=== PATIENT | male | born 1945 | race African-American/Black ===

== ENCOUNTER 2017-06-20 22:50 | Emergency (ER) | payer MEDICARE ==
[~2017-06-20] VITALS: Ht 185.4 cm; Wt 121.8 kg
[~2017-06-20 22:50] MED LIST: ALLEGRA-D 1212 HOUR PO; ALLEGRA-D 2424 HOUR PO; ALPRAZOLA1 PO; ALPRAZOLAM0.5 MG PO; AMLODIPINE10 MG OR; AMLODIPINE10 MG PO; AMOXICILLIN/CL500 MG PO; ANDROGEL TD; AUGMENTIN500TAB PO; BACTROBAN2 % EX; BRILINTA90 MG PO; CYMBALTA60 MG PO; FLEXERIL OR; FLONASE NASAL50 MCG; FOSINOPRIL20 MG OR; FOSINOPRIL40 MG PO; FUROSEMIDE40 MG PO; GLIMEPIRIDE2 MG OR; GLUCOTROL5 MG PO; HYTRIN2 MG OR; KEFLEX500 MG PO; KLOR-CON 1010 ME1 PO; KLOR-CON 1010 MEQ OR; LANTUS SC; LANTUS100 MG/ML SC; LASIX 40 MG TAB40 MG OR; LASIX 40 MG TAB40 MG PO; LIPITOR10 MG OR; LIPITOR80 MG PO; LISINOPRIL10 MG PO; LISINOPRIL20 MG PO; LORAZEPAM0.5 MG PO; LORTAB 7.5-3251 TAB PO; LORTAB5 PO; Levaquin PO; METFORMIN HCL500 MG PO; METFORMIN500 M1 PO; METOPROL TAR50 MG PO; METOPROLOL TAR100 MG PO; METOPROLOL TART50 MG PO; METOPROLOL50 MG OR; MONOPRIL40 MG PO; NAPROSYN500 MG OR; NOVOLIN N1000 UNITS SC; NOVOLIN R1000 UNITS SC; OMEPRAZOLE20 MG PO; OMEPRAZOLE40 MG PO; PRAVACHOL20 MG OR; PRAVACHOL40 MG PO; PRAVASTATIN SOD40 MG PO; PREVACID15 M1 OR; PRILOSEC20 MG OR; PRILOSEC40 MG PO; PROMETHAZINE/COD1 ML PO; STOOL SOFTNR100 M1 OR; TERAZOSIN2 MG PO; TRIAMCINOLON0.11 EX; ZPAK PO; ZYRTEC-D AL1 PO; [UNRECOGNIZED DRUG - CODE] OP
[2017-06-20 23:33] LABS: URINE BILIRUBIN - DIPSTICK NEGATIVE (NEGATIVE); URINE BLOOD DIPSTICK NEGATIVE (NEGATIVE); URINE CLARITY CLEAR; URINE COLOR YELLOW; URINE GLUCOSE - DIPSTICK >=1000 mg/dL (NEGATIVE); URINE KETONE NEGATIVE (NEGATIVE); URINE LEUK ESTERASE NEGATIVE (NEGATIVE); URINE NITRITE - DIPSTICK NEGATIVE (Negative); URINE PROTEIN - DIPSTICK NEGATIVE (NEG-TRACE); URINE UROBILINOGEN - DIPSTICK 0.2 E.U./dL (0.2)
[2017-06-20] MEDS ORDERED: ASPIRIN325 MG PO (23:50)
[2017-06-20] MEDS ORDERED: LISINOPRIL20 MG PO (23:52)
[2017-06-20 23:53] LABS: HEMATOCRIT 42.6 % (39.0-50.0); HEMOGLOBIN 14.7 g/dl (14.0-18.0); IMMATURE GRANULOCYTES 0.2 % (0.0-1.0); MEAN CORPUSCULAR HGB 32.5 pG CALC (26.0-32.0); MEAN CORPUSCULAR HGB CONC 34.5 g/L CALC (32.0-36.0); NEUT# 5.63 thou/uL (1.82-7.42); RED BLOOD COUNT 4.53 mill/uL (4.70-6.10); RED CELL DISTRI WIDTH 11.1 % (11.5-15.5)
[2017-06-20] MEDS ORDERED: CIPROFLOXACN250 MG PO (23:55)
[2017-06-20] MEDS ORDERED: CLONAZEPAM1 MG PO (23:57)
[2017-06-21 00:03] LABS: ALBUMIN 3.6 g/dL (3.2-5.0); ALKALINE PHOSPHATASE 178 u/l (38-126); ANION GAP 16 (6-22 (CALC)); BUN 16 mg/dL (8-23); BUN/CREATININE RATIO 18 (12-20 (CALC)); CALCIUM 9.5 mg/dL (8.4-10.2); CARBON DIOXIDE 26 mmol/l (22-30); CHLORIDE 100 mmol/l (95-108); CREATININE 0.9 mg/dL (0.7-1.3); GFR > 60 ML/MIN (>=60 (CALC)); GFR FOR AFR.AMER. > 60 ML/MIN (>=60 (CALC)); GLUCOSE 406 mg/dL (82-115); POTASSIUM 3.9 mmol/l (3.5-5.1); SGOT/AST 25 u/l (19-48); SGPT/ALT 44 u/l (11-66); SODIUM 139 mmol/l (137-146)
[2017-06-21 02:20] VITALS: BP 149/67
== END 2017-06-21 02:20 | disposition home or self-care (01) ==
LOC: ED 22:50
PROVIDERS: Emergency Medicine
DX: E11.65 Type 2 diabetes mellitus with hyperglycemia (principal); Z79.4 Long term (current) use of insulin; I69.354 Hemiplegia and hemiparesis following cerebral infarction affecting left non-dominant side; I10 Essential (primary) hypertension; R94.31 Abnormal electrocardiogram [ECG] [EKG]

== ENCOUNTER 2017-06-30 17:12 | Observation (INO) | payer MEDICARE ==
[~2017-06-30] VITALS: Ht 185.4 cm; Wt 127.0 kg
[~2017-06-30 17:12] MED LIST changes: +ASPIRIN325 MG PO; +CIPROFLOXACN250 MG PO; +CLONAZEPAM1 MG PO
--- NOTE | 2017-06-30 17:28 | NUR ---
PATIENT TO ROOM VIA EMS AND PHYSICIAN AT BEDSIDE
[2017-06-30 17:42] LABS: HEMATOCRIT 41.6 % (39.0-50.0); HEMOGLOBIN 13.8 g/dl (14.0-18.0); IMMATURE GRANULOCYTES 0.2 % (0.0-1.0); MEAN CELL VOLUME 98.1 fL CALC (80.0-100.0); MEAN CORPUSCULAR HGB 32.5 pG CALC (26.0-32.0); MEAN CORPUSCULAR HGB CONC 33.2 g/L CALC (32.0-36.0); NEUT# 6.21 thou/uL (1.82-7.42); RED BLOOD COUNT 4.24 mill/uL (4.70-6.10); RED CELL DISTRI WIDTH 11.8 % (11.5-15.5)
[2017-06-30 17:53] LABS: CREATININE 1.5 mg/dL (0.7-1.3); POTASSIUM 4.6 mmol/l (3.5-5.1)
[2017-06-30] MEDS ORDERED: VITAMIN B-COMPL1 TAB PO (18:41)
[2017-06-30] MEDS ORDERED: KLOR-CON 88 MEQ PO (18:44)
[2017-06-30] MEDS ORDERED: NOVOLIN 70/30 SC (18:44)
[2017-06-30] MEDS ORDERED: SEROQUEL100 MG PO (18:46)
[2017-06-30] MEDS ORDERED: SURFAK240 MG/CAP PO (18:47)
[2017-06-30] MEDS ORDERED: TRAZODONE50 MG PO (18:48)
[2017-06-30] MEDS ORDERED: TYLENOL325 MG PO (18:53)
[2017-06-30] MEDS ORDERED: ULTRAM50 M1 PO (18:56)
--- NOTE | 2017-06-30 19:00 | NUR ---
PT CONFUSED PER STROKE, YELLING OUT OCCASIONALLY. HE MOVES A LOT IN THE STRETCHER, LEG OVERBOARD, BUT DOES NOT REALLY ATTEMPT TO GET OOB. AND DAUGHTER HAVE BEEN AT BEDSIDE. PT DOES NOT APPEAR AGGRESSIVE.
--- NOTE | 2017-06-30 19:45 | NUR ---
PT ARRIVED TO UNIT VIA STRETCHER WITH ER STAFF. PT CONFUSED AND RESTLESS AT THIS TIME WITH LEG OVER RAILING OF STRETCHER. ASSISTED TO BED X 4 PERSON ASSIST. LEFT SIDED HEMIPARESIS R/T STROKE. CHANGED INTO GOWN AND PT IMMEDIATELY REMOVED GOWN, WAS INCONTINENT OF URINE, AND REMOVED TELEMETRY AND IV SITE. HYGEINE GIVEN AND DR. SANTIAGO NOTIFIED; NEW ORDERS RECEIVED. NEW IV PLACED AND ATIVAN IV GIVEN. VS STABLE. RESPIRATIONS EVEN AND UNLABORED. SAFETY MEASURES IN PLACE INCLUDING BED ALARM AND ROOM CLOSE TO NURSES DESK. WILL CONTINUE TO MONITOR CLOSELY.
--- NOTE | 2017-06-30 19:50 | NUR ---
PT TAKEN TO ROOM 291, REPORT WAS TO JIGAR. PT CONTINUES BEFORE, LEFT SIDED HEMIPARESIS AND CONFUSED. PT NONAMBULATORY, PER FAMILY.
[2017-06-30 19:55] VITALS: BP 146/77
--- NOTE | 2017-06-30 21:10 | NUR ---
ATIVAN SEEMS SOMEWHAT EFFECTIVE AT THIS TIME; PT CONTINUES TO SEEM RESTLESS; MOVING AROUND IN BED. NO LONGER YELLING OUT HE WAS BEFORE. HAS NOT ATTEMPED TO REMOVE IV SITE. NARRATIVE WRITER WAS D/C'D PER DR. SANTIAGO. SAFETY MEASURES IN PLACE.
--- NOTE | 2017-06-30 23:12 | NUR ---
PT QUIET IN HIS ROOM; RESTING IN BED AND MOVING AROUND REARRANGING HIS BLANKETS AND PILLOWS. DOES NOT APPEAR TO BE IN ANY DISTRESS. MEDICATIONS GIVEN CRUSHED IN APPLE SAUCE. PER REHAB PATIENT IS ON NECTAR LIQUIDS AND REGULAR DIABETIC DIET OVER THERE. SIGNS PLACED. PT WAS NOT COOPERATIVE WITH ASSESSMENT; DID NOT WANT TO OPEN HIS EYES AND SWUNG ARMS AROUND TO AVOID BEING TOUCHED. SAEFETY MEASURES IN PLACE AND DOOR KEPT OPEN TO MONITOR HIM CLOSELY.
--- NOTE | 2017-07-01 04:58 | NUR ---
PT HAS BEEN COOPERATIVE THROUGHOUT THE NIGHT; BED BATH GIVEN AND URINE SPECIMEN COLLECTED. CURRENTLY PT HAS INCREASED RESTLESSNESS AND SPEAKING TO HIS SELF LOUDLY. REMOVED GOWN AGAIN AND IS RESTING NAKED IN BED. SAFETY MEASURES REMAIN IN PLACE AND BED ALARM IS ON. ALL PT NEEDS ARE ANTICIPATED BY STAFF. DOES NOT USE CALL LIGHT.
[2017-07-01 05:43] LABS: URINE BILIRUBIN - DIPSTICK NEGATIVE (NEGATIVE); URINE BLOOD DIPSTICK NEGATIVE (NEGATIVE); URINE COLOR YELLOW; URINE GLUCOSE - DIPSTICK 500 mg/dL (NEGATIVE); URINE KETONE 15 mg/dL (NEGATIVE); URINE LEUK ESTERASE NEGATIVE (NEGATIVE); URINE NITRITE - DIPSTICK NEGATIVE (Negative); URINE PROTEIN - DIPSTICK NEGATIVE (NEG-TRACE); URINE UROBILINOGEN - DIPSTICK 0.2 E.U./dL (0.2)
[2017-07-01 05:45] LABS: URINE CLARITY SL CLOUDY
[2017-07-01 08:10] VITALS: BP 185/96
--- NOTE | 2017-07-01 08:10 | NUR ---
ASSESSMENT IS COMPLETED: PT IS FLAYING HIS R ARM AND LEG ON THE BED. LEFT ARM AND LEG IS FLACCID. IV SITE IS FREE FROM REDNESS OR EDEMA. CONTINUE TO OSBERVE AND MONITOR.
--- NOTE | 2017-07-01 12:45 | NUR ---
PT IS RESTING WITH EYES CLOSED. HAS MOVED A LITTLE IN BED WITH R ARM AND LEG. INCONTINENT OF URINE. CONTINUE TO OSBERVE AND MONITOR.
[2017-07-01 16:10] VITALS: BP 175/90
--- NOTE | 2017-07-01 16:45 | NUR ---
PT IS RELAXING IN BED VISITORS IN TO SEE PT. LEFT A FEW MINUTES LATER.
[2017-07-01 19:00] VITALS: BP 158/73
--- NOTE | 2017-07-01 20:00 | NUR ---
PT WOKE FOR ASSESSMENT. PT X2 PERSON ASSIST TO COMPLETE ASSESSMENT. PT AGITATED WHEN WOKE. RESP EVEN AND UNLABORED. LUNGS CLEAR BILAT. NO DISTRESS NOTED. ABD DISTENDED; SOFT WITH ACTIVE BOWEL SOUNDS. PEDAL PULSES PALPATED BILAT. IV RFA FLUSHED WITHOUT DIFFICULT; NO REDNESS OR EDEMA NOTED. LEFT SIDE FLACCID NOTED FROM PREVIOUS STROKE. BED ALARM IN PLACE; ROOM CLOSE TO NURSES DESK. FREQUENT ROUNDS MADE. CALL LIGHT WITHIN REACH.
--- NOTE | 2017-07-02 00:10 | NUR ---
PT APPEARS TO BE SLEEPING WITH EYES CLOSED. NO DISTRESS NOTED. RESP EVEN AND UNLABORED. BED ALARM IN PLACE FOR SAFETY. CALL LIGHT WITHIN REACH.
--- NOTE | 2017-07-02 04:08 | NUR ---
RESP EVEN AND UNLABORED. NO DISTRESS NOTED. PT SLEPT THROUGHOUT THE NIGHT. ASSESSMENT UNCHANGED. BED ALARM IN PLACE FOR SAFETY. CALL LIGHT WITHIN REACH.
[2017-07-02 04:47] VITALS: BP 161/76
[2017-07-02 05:54] LABS: IMMATURE GRANULOCYTES 0.2 % (0.0-1.0); MEAN CORPUSCULAR HGB 32.5 pG CALC (26.0-32.0); MEAN CORPUSCULAR HGB CONC 32.5 g/L CALC (32.0-36.0); NEUT# 5.73 thou/uL (1.82-7.42); RED CELL DISTRI WIDTH 11.6 % (11.5-15.5)
[2017-07-02 06:15] LABS: ALBUMIN 3.8 g/dL (3.2-5.0); ALKALINE PHOSPHATASE 160 u/l (38-126); ANION GAP 19 (6-22 (CALC)); BILIRUBIN, TOTAL 3.2 mg/dL (0.0-1.4); BUN 31 mg/dL (8-23); BUN/CREATININE RATIO 27 (12-20 (CALC)); CALCIUM 9.9 mg/dL (8.4-10.2); CARBON DIOXIDE 25 mmol/l (22-30); CHLORIDE 106 mmol/l (95-108); CREATININE 1.2 mg/dL (0.7-1.3); GFR 60 ML/MIN (>=60 (CALC)); GFR FOR AFR.AMER. > 60 ML/MIN (>=60 (CALC)); GLUCOSE 301 mg/dL (82-115); POTASSIUM 4.7 mmol/l (3.5-5.1); SGOT/AST 44 u/l (19-48); SGPT/ALT 42 u/l (11-66); SODIUM 145 mmol/l (137-146); TOTAL PROTEIN 7.2 g/dL (6.3-8.2)
[2017-07-02 07:50] VITALS: BP 102/47
--- NOTE | 2017-07-02 07:50 | NUR ---
ASSESSMENT IS COMPLETD; PT IS HARD TO WAKE UP. IV SITE IS FREE FROM REDNESS OR EDEMA. FAMILY IN THE ROOM. CONTINUE TO ENCOURAGE PT TO TAKE IN FLUIDS.
--- NOTE | 2017-07-02 12:15 | NUR ---
PT IS RESTING OFF AND ON. STILL LIKES TO TAKE CLOTHES OFF , EATING MINIMAL AMOUNT OF FOOD,. TAKES IN DRINKS AND SOME APPLESAUCE. ENCOURAGING PT TO EAT. LIKES TO SLEEP.
[2017-07-02 15:38] VITALS: BP 175/94
--- NOTE | 2017-07-02 16:15 | NUR ---
PT WOKE UP AND TOOK OFF GOWN, AND SHEETS. REPLACED BY DOOR TECHNICIAN AND STAFF MULTIPLE TIMES. FAMILY CAME IN AND SPOKE WITH PT AND STAFF/ WAITING FOR TO COME IN. IV SITE IS FREE FROM REDNESS OR EDEMA. PT HAS NOT BEEN COMBATIVE .
--- NOTE | 2017-07-02 17:10 | NUR ---
PT WAS SEEN WITH NURSING IN THE ROOM TAKING HIS BLOOD PRESSURE. BP= 175/94 TX WAS DEFERRED TODAY. NRSING WAS ADVISED.
[2017-07-02 19:00] VITALS: BP 163/79
--- NOTE | 2017-07-02 19:40 | NUR ---
PT INCONTINENT OF URINE; BED CHANGED; PT CARE GIVEN. PT AGITATED. 2 PERSON ASSIST TO COMPLETE ASSESSMENT. RESP EVEN AND UNLABORED. NO DISTRESS NOTED. ABD DISTENDED; SOFT. BOWEL SOUNDS PRESENT. PEDAL PULSES PALPATED BILAT. IV RFA FLUSHED WITHOUT DIFFICULTY. LEFT SIDE FLACCID NOTED FROM PREVIOUS STROKE. BED ALARM IN PLACE. FREQUENT ROUNDS MADE. CALL LIGHT WITHIN REACH.
--- NOTE | 2017-07-02 22:08 | NUR ---
PT AGITATED; UNDRESSING SELF; GETTING OUT OF BED. DR NOTIFIED, NEW ORDER RECIEVED. D/C IV RFA PER DR ORDER.
--- NOTE | 2017-07-03 00:15 | NUR ---
RESP EVEN AND UNLABORED; NO DISTRESS NOTED. BED ALARM IN PLACE FOR SAFETY PRECAUTION. CALL LIGHT WITHIN REACH.
--- NOTE | 2017-07-03 04:05 | NUR ---
RESP EVEN AND UNLABORED; NO DISTRESS NOTED. BED ALARM IN PLACE. CALL LIGHT WITHIN REACH.
[2017-07-03 04:45] VITALS: BP 156/87
[2017-07-03 06:16] LABS: HEMATOCRIT 40.8 % (39.0-50.0); HEMOGLOBIN 13.5 g/dl (14.0-18.0); IMMATURE GRANULOCYTES 0.3 % (0.0-1.0); MEAN CELL VOLUME 98.3 fL CALC (80.0-100.0); MEAN CORPUSCULAR HGB 32.5 pG CALC (26.0-32.0); MEAN CORPUSCULAR HGB CONC 33.1 g/L CALC (32.0-36.0); NEUT# 5.36 thou/uL (1.82-7.42); RED BLOOD COUNT 4.15 mill/uL (4.70-6.10); RED CELL DISTRI WIDTH 11.6 % (11.5-15.5)
[2017-07-03 06:37] LABS: ANION GAP 18 (6-22 (CALC)); BUN 26 mg/dL (8-23); BUN/CREATININE RATIO 22 (12-20 (CALC)); CALCIUM 9.7 mg/dL (8.4-10.2); CARBON DIOXIDE 27 mmol/l (22-30); CHLORIDE 105 mmol/l (95-108); CREATININE 1.2 mg/dL (0.7-1.3); GFR 60 ML/MIN (>=60 (CALC)); GFR FOR AFR.AMER. > 60 ML/MIN (>=60 (CALC)); GLUCOSE 319 mg/dL (82-115); POTASSIUM 4.5 mmol/l (3.5-5.1); SODIUM 145 mmol/l (137-146)
--- NOTE | 2017-07-03 07:30 | NUR ---
PT IN SUPINE POSITION; SPOUSE IN TO VISIT; PT RESTLESS AT TIMES; CALL VARGHESE WITHIN REACH; WILL CONTINUE TO MONITOR.
[2017-07-03 08:06] VITALS: BP 138/72
--- NOTE | 2017-07-03 10:00 | NUR ---
PT RESTLESS; INCONTINENT OF MODERATE AMOUNT OF URINE; COMPLETE BED BATH GIVEN AND PT REPOSITIONED; CALL VARGHESE WITHIN REACH; WILL CONTINUE TO MONITOR.
--- NOTE | 2017-07-03 12:00 | NUR ---
PT RESTING WITH EYES CLOSED; NOS/SX OF DISTRESS NOTED; CALL VARGHESE WITHIN REACH; WILL CONTINUE TO MONITOR.
--- NOTE | 2017-07-03 13:20 | NUR ---
FAMILY IN TO VISIT PT; CALL VARGHESE WITHIN REACH; WILL CONTNINUE TO MONITOR.
--- NOTE | 2017-07-03 14:34 | NUR ---
Discharge instructions given. Patient verbalizes understanding of same. Discharged in stable condition via [facility] with R STAFF. All belongings sent with pt.
== END 2017-07-03 14:28 ==
LOC: ED 17:12 → ED-I 18:05 → ED 18:22 → MS2 18:23
PROVIDERS: Family Medicine; ADMIT Internal Medicine Geriatric Medicine; ATTEND Internal Medicine Geriatric Medicine
DX: R41.82 Altered mental status, unspecified (principal); I11.9 Hypertensive heart disease without heart failure; I25.10 Atherosclerotic heart disease of native coronary artery without angina pectoris; I69.952 Hemiplegia and hemiparesis following unspecified cerebrovascular disease affecting left dominant side; E11.42 Type 2 diabetes mellitus with diabetic polyneuropathy; M19.90 Unspecified osteoarthritis, unspecified site; F20.9 Schizophrenia, unspecified; E78.5 Hyperlipidemia, unspecified; K21.9 Gastro-esophageal reflux disease without esophagitis; F31.9 Bipolar disorder, unspecified; F41.9 Anxiety disorder, unspecified; Z95.5 Presence of coronary angioplasty implant and graft
CPT/HCPCS: J2060

== ENCOUNTER 2017-07-03 19:36 | Observation (INO) | payer MEDICARE ==
[~2017-07-03] VITALS: Ht 185.4 cm; Wt 127.0 kg
[~2017-07-03 19:36] MED LIST changes: +KLOR-CON 88 MEQ PO; +NOVOLIN 70/30 SC; +SEROQUEL100 MG PO; +SURFAK240 MG/CAP PO; +TRAZODONE50 MG PO; +TYLENOL325 MG PO; +ULTRAM50 M1 PO; +VITAMIN B-COMPL1 TAB PO
--- NOTE | 2017-07-03 19:36 | NUR ---
PT TO ROOM 10 BY EMS FROM [facility]. EMS TOLD BY STAFF PT KEEPS TRYING TO GET OUT BED AND HAS HISTORY OF FALLS. STATED THEY CAN'T KEEP SIDE RAILS UP SO THEY SENT HIM HERE. SUSI FROM [facility] CALLED EARLIER STATING THEY WERE SENDING PT HERE TO BE PLACED UNDER [facility] SINCE HIS PSYCHIATRIST SAID HE COULD NOT DO IT. SUSI STATED PT HAS BEEN THROWING THINGS AT HIS ROOM MATE.
--- NOTE | 2017-07-03 19:40 | NUR ---
PT. ALERT NOT COMBATIVE AT THIS TIME WILL TELL NRSG. STAFF HIS DATE. NO ACUTE DISTRESS NOTED. EMS PT. HAD A CVA IN MAY. LEFT SIDED FACIAL DROOP AND LEFT SIDE FLACID.
[2017-07-03 20:14] LABS: HEMATOCRIT 38.9 % (39.0-50.0); HEMOGLOBIN 12.9 g/dl (14.0-18.0); IMMATURE GRANULOCYTES 0.3 % (0.0-1.0); MEAN CELL VOLUME 98.2 fL CALC (80.0-100.0); MEAN CORPUSCULAR HGB 32.6 pG CALC (26.0-32.0); MEAN CORPUSCULAR HGB CONC 33.2 g/L CALC (32.0-36.0); NEUT# 6.14 thou/uL (1.82-7.42); RED BLOOD COUNT 3.96 mill/uL (4.70-6.10); RED CELL DISTRI WIDTH 11.6 % (11.5-15.5)
[2017-07-03 20:27] LABS: CALCIUM 9.8 mg/dL (8.4-10.2); CREATININE 1.5 mg/dL (0.7-1.3); POTASSIUM 4.5 mmol/l (3.5-5.1)
--- NOTE | 2017-07-03 21:09 | NUR ---
im haldol given as per md order for agitation.
--- NOTE | 2017-07-03 21:35 | NUR ---
PT. CONT. TO CALL OUT FOR
--- NOTE | 2017-07-03 21:54 | NUR ---
PT. INCONTINENT OF A MODERATE AMT. OF URINE, DIONI CARE GIVEN. PT. RIPS DIAPER OFF WHEN WE ATTEMPT TO APPLY ONE.
--- NOTE | 2017-07-03 22:20 | NUR ---
Admission Note Report Given to: BIGG HAILE Transported by: Wheelchair X Stretcher Transported with: X Nurse Transporter X Patent IV O2 X [employer] Worker
--- NOTE | 2017-07-03 22:30 | NUR ---
PT. TRANSFERD TO [place] VIA STRETCHER, REMOVING GOWN AND TELE MONITOR.
[2017-07-03 22:40] VITALS: BP 145/80
--- NOTE | 2017-07-03 22:40 | NUR ---
PT TRANSPORTED TO FLOOR IN STABLE CONDITION VIA STRETCHER ACCOMPANIED BY LAZARA KIMBALL AND UTE URRUTIA;PT TRANSFERRED TO BED WITH 3 PERSON ASSIST;WEIGHT AND VS OBTAINED BY IAN MILNER;PT UNCOOPERATIVE;ALERT TO SELF ONLY;PT RE-ORIENTED TO PLACE AND TIME;RESPIRATIONS EVEN AND UNLABORED ON RA;CLEAR LUNG SOUNDS NOTED;#20G TO RAC FLUSHED AND PATENT;TELE PLACED ON PT BUT PT UNWILLING TO KEEP IN PLACE;SKIN INTACT;LEFT SIDED WEAKNESS AND FACIAL DROOPING NOTED FROM HX OF CVA;SAFETY PRECAUTIONS REINFORCED AND FALL PRECAUTIONS PUT INTO PLACE;BED ALARM ON FOR SAFETY;CALL LIGHT IN REACH,WILL CONTINUE TO MONITOR CLOSELY
--- NOTE | 2017-07-03 22:50 | NUR ---
NOTIFIED OF PT PT TRANSPORT TO MED/SURG;NEW ORDERS RECEIVED
--- NOTE | 2017-07-03 23:40 | NUR ---
PT MEDICATED WITH 1MG IVP OF ATIVAN
--- NOTE | 2017-07-04 05:45 | NUR ---
PT HAS HAD SEVERAL EPISODES OF INCONTINENCE THROUGHOUT THE NIGHT AND REFUSES TO KEEP GOWN ON;PT REPOSITIONED IN BED;LAB AT BEDSIDE;PT VERBAL WITH GARBLED SPEECH;UNORIENTED;IV FLUIDS INFUSING WELL TO RAC WITHOUT DIFFICULTY;RESPIRATIONS EVEN AND UNLABORED ON RA;BED ALARM ON FOR SAFETY;CALL LIGHT IN REACH;WILL CONTINUE TO MONITOR
[2017-07-04 05:57] LABS: HEMATOCRIT 39.4 % (39.0-50.0); HEMOGLOBIN 12.9 g/dl (14.0-18.0); IMMATURE GRANULOCYTES 0.3 % (0.0-1.0); MEAN CELL VOLUME 97.5 fL CALC (80.0-100.0); MEAN CORPUSCULAR HGB 31.9 pG CALC (26.0-32.0); MEAN CORPUSCULAR HGB CONC 32.7 g/L CALC (32.0-36.0); NEUT# 5.85 thou/uL (1.82-7.42); RED BLOOD COUNT 4.04 mill/uL (4.70-6.10); RED CELL DISTRI WIDTH 11.7 % (11.5-15.5)
[2017-07-04 06:07] LABS: ANION GAP 21 (6-22 (CALC)); BUN 25 mg/dL (8-23); BUN/CREATININE RATIO 19 (12-20 (CALC)); CALCIUM 9.8 mg/dL (8.4-10.2); CARBON DIOXIDE 19 mmol/l (22-30); CHLORIDE 109 mmol/l (95-108); CREATININE 1.3 mg/dL (0.7-1.3); GFR 55 ML/MIN (>=60 (CALC)); GFR FOR AFR.AMER. > 60 ML/MIN (>=60 (CALC)); GLUCOSE 288 mg/dL (82-115); POTASSIUM 4.9 mmol/l (3.5-5.1); SODIUM 144 mmol/l (137-146)
[2017-07-04 06:31] VITALS: BP 142/73
--- NOTE | 2017-07-04 07:50 | NUR ---
ASSESSMENT IS COMPLTED: IV SITE INTACT AT THIS TIME. PT IS RESTING WITH EYES CLOSED. NO DISTRESS NOTED. CONTINUE TO OSBERVE AND MONITOR.
[2017-07-04 08:00] VITALS: BP 143/45
--- NOTE | 2017-07-04 08:00 | NUR ---
PATIENT SLEEPING. PATIENT IS NONAROUSABLE FOR BREAKFAST. PUPILS ARE SLUGGISH. HEART SOUNDS AND RYTHYM ARE NORMAL. PATIENT HAS STRONG RADIAL PULSES. IV SITE FREE OF REDNESS AND EDEMA CAPILLARY REFILL IS <3. BOWELS SOUNDS ARE HYPOACTIVE. PATIENTS SKIN IS WARM AND DRY. PEDAL PULSES ARE WEAK, FEET ARE COLD BUT OF APPROPRIATE COLOR. PATIENT HAS LEFT SIDE WEAKNESS. PATIENT HAS REPETITIVE MOVEMENT OF PULLING OFF COVERS AND GOWN WITH STRONG RIGHT ARM AND PULLING UP RIGHT KNEE. BED IN LOWEST POSITION, SRX3, WHEELS ARE LOCKED, CALL LIGHT WITHIN REACH. BED ALARM IN USE. WILL CONTINUE TO MONITOR.
--- NOTE | 2017-07-04 09:50 | NUR ---
left voicemail for on home # and work #[phone] to [address] for CT brain with contrast.
--- NOTE | 2017-07-04 10:12 | NUR ---
received return call from and updated on poc. agreeable to ct brain with iv contrast, yvette Lundy LPN reveived verbal verification as well.
--- NOTE | 2017-07-04 10:53 | NUR ---
found iv dislodged,catheter tip intact. pt moving about in bed
--- NOTE | 2017-07-04 12:00 | NUR ---
PT IS RELAXING IN BED HAS SOME MOVEMENT. IV SITE WAS CHANGED DUE TO PT TAKING IT OUT. # 20 IN RAC. NS @60. CONTINUE TO OSBERVE AND MONITOR.
[2017-07-04 12:09] VITALS: BP 96/49
[2017-07-04 15:31] VITALS: BP 148/41
--- NOTE | 2017-07-04 16:25 | NUR ---
SUSI UNGER FROM [facility] INQUIRING WHAT THE DIAGNOSIS FOR ADM WAS . INFORMED IT WAS FOR ALTERED MENTAL STATUS.
--- NOTE | 2017-07-04 16:45 | NUR ---
PT IS RELAXING IN BED FAMILY CAME IN AND ASSISTED WITH SUPPER. NO DISTRESS NOTED. IV SITE IS FREE FROM REDNESS OR EDEMA. CONTINUE TO OSBERVE AND MONITOR.
[2017-07-04 19:20] VITALS: BP 112/67
--- NOTE | 2017-07-04 19:30 | NUR ---
PT RESTING IN BED WITH EYES CLOSED. FAMILY IN ROOM. PT IS AROUSABLE TO PAIN. PT SPEECH IS GARBLED. PERRLA. LUNGS ARE CLEAR. RESP ARE EVEN AND UNLABORED. NO DISTRESS NOTED. HR REGULAR. PULSES PALPABLE THROUGHOUT. NO EDEMA NOTED. PT IS FLACCID ON LEFT SIDE. ABLE TO MOVE RIGHT SIDE WITHOUT DIFFICULTY. #20 RAC WITH NS@60ML/HR. NO REDNESS OR EDEMA NOTED. WILL CONTINUE TO MONITOR
--- NOTE | 2017-07-04 20:00 | NUR ---
PT IS AWAKE IN BED. PT IS UNDRESSING SELF. ATTEMPTED TO REORIENT PATIENT AND CALM PATIENTS WITH MUSIC. PT STILL UNDRESSING AND TRYING TO CRAWL OUT OF BED. WILL CONTINUE TO MONITOR
--- NOTE | 2017-07-04 20:30 | NUR ---
PT GIVEN ATIVAN 1MG FOR RESTLESS NESS
--- NOTE | 2017-07-04 21:00 | NUR ---
PT RESTING IN BED. PM MEDS GIVEN IN APPLESAUCE. PT TOLERATED WELL.
--- NOTE | 2017-07-05 | NUR ---
PT RESTING IN BED WITH EYES CLOSED. RESP ARE EVEN AND UNLABORED. NO DISTRESS NOTED. WILL CONTINUE TO MONITOR
--- NOTE | 2017-07-05 04:06 | NUR ---
PT RESTING IN BED WITH EYES CLOSED. RESP ARE EVEN AND UNLABORED. NO DISTRESS NOTED. WILL CONTINUE TO MONITOR
[2017-07-05 05:00] VITALS: BP 155/72
--- NOTE | 2017-07-05 05:00 | NUR ---
LAB INTO DRAW AM LABS
[2017-07-05 05:48] LABS: HEMATOCRIT 36.9 % (39.0-50.0); HEMOGLOBIN 11.8 g/dl (14.0-18.0); IMMATURE GRANULOCYTES 0.3 % (0.0-1.0); MEAN CELL VOLUME 101.7 fL CALC (80.0-100.0); MEAN CORPUSCULAR HGB 32.5 pG CALC (26.0-32.0); NEUT# 3.69 thou/uL (1.82-7.42); RED BLOOD COUNT 3.63 mill/uL (4.70-6.10)
[2017-07-05 06:12] LABS: ALBUMIN 3.1 g/dL (3.2-5.0); ALKALINE PHOSPHATASE 124 u/l (38-126); ANION GAP 17 (6-22 (CALC)); BILIRUBIN, TOTAL 1.8 mg/dL (0.0-1.4); BUN 25 mg/dL (8-23); BUN/CREATININE RATIO 21 (12-20 (CALC)); CALCIUM 9.3 mg/dL (8.4-10.2); CARBON DIOXIDE 23 mmol/l (22-30); CHLORIDE 113 mmol/l (95-108); CREATININE 1.2 mg/dL (0.7-1.3); GFR 60 ML/MIN (>=60 (CALC)); GFR FOR AFR.AMER. > 60 ML/MIN (>=60 (CALC)); GLUCOSE 238 mg/dL (82-115); POTASSIUM 4.7 mmol/l (3.5-5.1); SGOT/AST 40 u/l (19-48); SGPT/ALT 34 u/l (11-66); SODIUM 148 mmol/l (137-146); TOTAL PROTEIN 6.2 g/dL (6.3-8.2)
--- NOTE | 2017-07-05 07:03 | NUR ---
PT HAD DISLODGED IV. REMOVED #20 RAC CATH TIP INTACT.
--- NOTE | 2017-07-05 08:05 | NUR ---
PT ASSESSMENT IS COMPLETED; OIV SITE IS FREE FROM REDNESS OR EDEMA. NO DISTRESS NOTED. PT TOOK IV OUT WHILE GETTING REPORT. CONTINUE TO OSEBRVE AND MONITOR.
[2017-07-05] MEDS ORDERED: ATIVAN1 MG PO ×2 (08:48→08:57)
[2017-07-05] MEDS ORDERED: SEROQUEL50 MG PO (08:48)
[2017-07-05 09:43] VITALS: BP 141/64
--- NOTE | 2017-07-05 11:20 | NUR ---
GAVE REPORT TO ASHLEY UNGER. IV SITE WAS ALREADY OUT THIS AM DUE TO PT PULLING IT OUT.ASSISTED COMMUNITY DIRECTOR WITH A PHUONG LIFT TO BE PLACED IN THE WC. INSTRUCTED THAT PT IS SLEEPY AND DR SHEPHERD WISHES ABOUT PLACING BED ON THE R SIDE TO KEEP PT FROM FALLING OUT OF BED, WAS INFORMED THAT IT IS HARD DUE TO AC ON THAT SIDE OF THE ROOM. PT WAS ARRIVING WHILE SPEAKING WITH THE NURSE.
== END 2017-07-05 11:10 ==
LOC: ED 19:36 → ED-I 21:15 → ED 21:52 → MS2 21:53
PROVIDERS: Family Medicine; ADMIT Internal Medicine Geriatric Medicine; ATTEND Internal Medicine Geriatric Medicine
DX: R41.82 Altered mental status, unspecified (principal); E11.9 Type 2 diabetes mellitus without complications; I25.10 Atherosclerotic heart disease of native coronary artery without angina pectoris; E78.5 Hyperlipidemia, unspecified; M19.90 Unspecified osteoarthritis, unspecified site; K21.9 Gastro-esophageal reflux disease without esophagitis; I69.952 Hemiplegia and hemiparesis following unspecified cerebrovascular disease affecting left dominant side; F20.9 Schizophrenia, unspecified
CPT/HCPCS: J2060; Q9967

== ENCOUNTER 2017-07-19 12:22 | Emergency (ER) | payer MEDICARE ==
[~2017-07-19] VITALS: Ht 185.4 cm; Wt 118.0 kg
[~2017-07-19 12:22] MED LIST changes: +ATIVAN1 MG PO; +SEROQUEL50 MG PO
[2017-07-19] MEDS ORDERED: LANTUS100 UNIT/M SC (12:42)
[2017-07-19] MEDS ORDERED: METOPROL TAR25 MG PO (12:44)
[2017-07-19] MEDS ORDERED: BRILINTA90 MG PO (12:45)
[2017-07-19] MEDS ORDERED: NOVOLIN R RELION (12:47)
[2017-07-19 13:07] LABS: HEMATOCRIT 40.4 % (39.0-50.0); HEMOGLOBIN 12.6 g/dl (14.0-18.0); IMMATURE GRANULOCYTES 0.5 % (0.0-1.0); MEAN CELL VOLUME 103.9 fL CALC (80.0-100.0); MEAN CORPUSCULAR HGB 32.4 pG CALC (26.0-32.0); MEAN CORPUSCULAR HGB CONC 31.2 g/L CALC (32.0-36.0); NEUT# 14.41 thou/uL (1.82-7.42); RED BLOOD COUNT 3.89 mill/uL (4.70-6.10); RED CELL DISTRI WIDTH 13.6 % (11.5-15.5)
[2017-07-19 13:22] LABS: ALBUMIN 3.7 g/dL (3.2-5.0); BILIRUBIN, TOTAL 1.7 mg/dL (0.0-1.4); CREATININE 2.1 mg/dL (0.7-1.3); TOTAL PROTEIN 7.3 g/dL (6.3-8.2)
[2017-07-19 13:31] LABS: INTERNATIONAL NORMALIZED RATIO 1.1 RATIO (0.7-1.3); PROTHROMBIN TIME 11.9 SECONDS (9.0-12.5)
[2017-07-19 15:03] VITALS: BP 152/58
== END 2017-07-19 15:04 | disposition short-term general hospital (02) ==
LOC: ED 12:22
PROVIDERS: Emergency Medicine
DX: I63.8 Other cerebral infarction (principal); R47.01 Aphasia; R29.810 Facial weakness; G81.94 Hemiplegia, unspecified affecting left nondominant side

== ENCOUNTER 2017-09-07 10:28 | Emergency (ER) | payer MEDICARE ==
[~2017-09-07] VITALS: Ht 185.4 cm; Wt 102.3 kg
[~2017-09-07 10:28] MED LIST changes: +LANTUS100 UNIT/M SC; +METOPROL TAR25 MG PO; +NOVOLIN R RELION
[2017-09-07 11:10] VITALS: BP 177/79
== END 2017-09-07 11:10 ==
LOC: ED 10:28
PROC: 0DH67UZ Insertion of Feeding Device into Stomach, Via Natural or Artificial Opening (ICD-10-PCS; principal; 2017-09-07)
DX: Z43.1 Encounter for attention to gastrostomy (principal); I69.954 Hemiplegia and hemiparesis following unspecified cerebrovascular disease affecting left non-dominant side; I10 Essential (primary) hypertension; I25.10 Atherosclerotic heart disease of native coronary artery without angina pectoris; E11.9 Type 2 diabetes mellitus without complications

== ENCOUNTER 2017-09-14 11:29 | Inpatient (IN) | payer MEDICARE ==
[~2017-09-14] VITALS: Ht 185.4 cm; Wt 108.0 kg
[2017-09-14] VITALS (13 sets, daily range): BP systolic 98–147; BP diastolic 55–76
[~2017-09-14 11:29] MED LIST changes: +BRILINTA90 MG PEG; +METOPROL TAR25 MG PEG; -METOPROL TAR25 MG PO
[2017-09-14 12:56] LABS: IMMATURE GRANULOCYTES 0.3 % (0.0-1.0); MEAN CELL VOLUME 103.2 fL CALC (80.0-100.0); MEAN CORPUSCULAR HGB 32.1 pG CALC (26.0-32.0); MEAN CORPUSCULAR HGB CONC 31.1 g/L CALC (32.0-36.0); NEUT# 13.63 thou/uL (1.82-7.42); RED BLOOD COUNT 4.95 mill/uL (4.70-6.10); RED CELL DISTRI WIDTH 13.2 % (11.5-15.5)
[2017-09-14 12:57] LABS: HEMATOCRIT 51.1 % (39.0-50.0); HEMOGLOBIN 15.9 g/dl (14.0-18.0)
[2017-09-14 13:03] LABS: ALBUMIN 3.8 g/dL (3.2-5.0); ALKALINE PHOSPHATASE 189 u/l (38-126); ANION GAP 24 (6-22 (CALC)); BILIRUBIN, TOTAL 1.3 mg/dL (0.0-1.4); BUN 38 mg/dL (8-23); BUN/CREATININE RATIO 35 (12-20 (CALC)); CARBON DIOXIDE 25 mmol/l (22-30); CHLORIDE 108 mmol/l (95-108); CREATININE 1.1 mg/dL (0.7-1.3); GFR > 60 ML/MIN (>=60 (CALC)); GFR FOR AFR.AMER. > 60 ML/MIN (>=60 (CALC)); POTASSIUM 4.5 mmol/l (3.5-5.1); SGOT/AST 36 u/l (19-48); SGPT/ALT 54 u/l (11-66); SODIUM 153 mmol/l (137-146); TOTAL PROTEIN 7.7 g/dL (6.3-8.2)
[2017-09-14] MEDS ORDERED: AMLODIPINE5 MG PEG (14:25)
[2017-09-14] MEDS ORDERED: ASPIRIN81 MG PEG (14:26)
[2017-09-14] MEDS ORDERED: ATORVASTATIN CA80 MG PEG (14:27)
[2017-09-14] MEDS ORDERED: FAMOTIDINE20 M1 PEG (14:30)
[2017-09-14] MEDS ORDERED: GLUCERNA CAL PEG (14:36)
[2017-09-14] MEDS ORDERED: LEVEMIR FL100 UNIT/M SC (14:37)
[2017-09-14] MEDS ORDERED: HYPROMELLOSE2.5 % OU (14:39)
[2017-09-14] MEDS ORDERED: NOVOLOG100 UNIT/M (14:41)
[2017-09-14 19:31] LABS: URINE BILIRUBIN - DIPSTICK NEGATIVE (NEGATIVE); URINE BLOOD DIPSTICK LARGE (NEGATIVE); URINE COLOR YELLOW; URINE GLUCOSE - DIPSTICK 500 mg/dL (NEGATIVE); URINE KETONE 15 mg/dL (NEGATIVE); URINE NITRITE - DIPSTICK NEGATIVE (Negative); URINE PROTEIN - DIPSTICK 30 mg/dL (NEG-TRACE); URINE SPECIFIC GRAVITY 1.025; URINE UROBILINOGEN - DIPSTICK 0.2 E.U./dL (0.2)
[2017-09-14 19:52] LABS: URINE CLARITY CLEAR; URINE LEUK ESTERASE SMALL (NEGATIVE)
[2017-09-14 20:06] LABS: URINE RBC TNTC RBC/hpf (0-5)
[2017-09-14 20:07] LABS: URINE BACTERIA MANY hpf; URINE SQUAMOUS EPITHELIAL CELL FEW EPI/hpf (0-FEW)
[2017-09-15] VITALS (14 sets, daily range): BP systolic 112–159; BP diastolic 51–76
[2017-09-15 08:10] LABS: IMMATURE GRANULOCYTES 0.4 % (0.0-1.0); MEAN CELL VOLUME 102.3 fL CALC (80.0-100.0); MEAN CORPUSCULAR HGB 32.2 pG CALC (26.0-32.0); MEAN CORPUSCULAR HGB CONC 31.4 g/L CALC (32.0-36.0); NEUT# 12.3 thou/uL (1.82-7.42); RED BLOOD COUNT 3.95 mill/uL (4.70-6.10); RED CELL DISTRI WIDTH 13.3 % (11.5-15.5)
[2017-09-15 08:24] LABS: HEMATOCRIT 40.4 % (39.0-50.0); HEMOGLOBIN 12.7 g/dl (14.0-18.0)
[2017-09-15 08:32] LABS: ALKALINE PHOSPHATASE 131 u/l (38-126); ANION GAP 15 (6-22 (CALC)); BILIRUBIN, TOTAL 1.2 mg/dL (0.0-1.4); BUN 37 mg/dL (8-23); BUN/CREATININE RATIO 35 (12-20 (CALC)); CARBON DIOXIDE 26 mmol/l (22-30); CHLORIDE 115 mmol/l (95-108); CREATININE 1.1 mg/dL (0.7-1.3); GFR > 60 ML/MIN (>=60 (CALC)); GFR FOR AFR.AMER. > 60 ML/MIN (>=60 (CALC)); POTASSIUM 4.3 mmol/l (3.5-5.1); SGOT/AST 17 u/l (19-48); SGPT/ALT 39 u/l (11-66); SODIUM 152 mmol/l (137-146)
[2017-09-15 08:34] LABS: ALBUMIN 2.7 g/dL (3.2-5.0)
[2017-09-16] VITALS (12 sets, daily range): BP systolic 135–176; BP diastolic 53–84
[2017-09-16 05:25] LABS: HEMATOCRIT 37.4 % (39.0-50.0); HEMOGLOBIN 11.7 g/dl (14.0-18.0); IMMATURE GRANULOCYTES 0.9 % (0.0-1.0); MEAN CELL VOLUME 102.7 fL CALC (80.0-100.0); MEAN CORPUSCULAR HGB 32.1 pG CALC (26.0-32.0); MEAN CORPUSCULAR HGB CONC 31.3 g/L CALC (32.0-36.0); PLATELET COUNT 211 thou/uL (130-400); RED BLOOD COUNT 3.64 mill/uL (4.70-6.10); RED CELL DISTRI WIDTH 13.5 % (11.5-15.5)
[2017-09-16 05:27] LABS: ANION GAP 15 (6-22 (CALC)); BUN 25 mg/dL (8-23); BUN/CREATININE RATIO 30 (12-20 (CALC)); CARBON DIOXIDE 24 mmol/l (22-30); CHLORIDE 120 mmol/l (95-108); CREATININE 0.9 mg/dL (0.7-1.3); GFR > 60 ML/MIN (>=60 (CALC)); GFR FOR AFR.AMER. > 60 ML/MIN (>=60 (CALC)); SODIUM 156 mmol/l (137-146)
[2017-09-16 05:28] LABS: POTASSIUM 3.4 mmol/l (3.5-5.1)
[2017-09-16 05:48] LABS: MANUAL DIFFERENTIAL YES
[2017-09-17] VITALS (13 sets, daily range): BP systolic 121–189; BP diastolic 57–89
[2017-09-17 04:26] LABS: HEMATOCRIT 36.5 % (39.0-50.0); HEMOGLOBIN 11.4 g/dl (14.0-18.0); IMMATURE GRANULOCYTES 0.8 % (0.0-1.0); MEAN CELL VOLUME 103.4 fL CALC (80.0-100.0); MEAN CORPUSCULAR HGB 32.3 pG CALC (26.0-32.0); MEAN CORPUSCULAR HGB CONC 31.2 g/L CALC (32.0-36.0); NEUT# 10.15 thou/uL (1.82-7.42); RED BLOOD COUNT 3.53 mill/uL (4.70-6.10); RED CELL DISTRI WIDTH 13.5 % (11.5-15.5)
[2017-09-17 04:46] LABS: ANION GAP 15 (6-22 (CALC)); BUN 19 mg/dL (8-23); BUN/CREATININE RATIO 25 (12-20 (CALC)); CARBON DIOXIDE 24 mmol/l (22-30); CHLORIDE 123 mmol/l (95-108); CREATININE 0.7 mg/dL (0.7-1.3); GFR > 60 ML/MIN (>=60 (CALC)); GFR FOR AFR.AMER. > 60 ML/MIN (>=60 (CALC)); POTASSIUM 3.7 mmol/l (3.5-5.1); SODIUM 159 mmol/l (137-146)
[2017-09-18] VITALS (13 sets, daily range): BP systolic 132–196; BP diastolic 59–94
[2017-09-18 05:55] LABS: HEMATOCRIT 36.9 % (39.0-50.0); HEMOGLOBIN 11.4 g/dl (14.0-18.0); IMMATURE GRANULOCYTES 1.1 % (0.0-1.0); MEAN CELL VOLUME 103.1 fL CALC (80.0-100.0); MEAN CORPUSCULAR HGB 31.8 pG CALC (26.0-32.0); MEAN CORPUSCULAR HGB CONC 30.9 g/L CALC (32.0-36.0); NEUT# 9.26 thou/uL (1.82-7.42); RED BLOOD COUNT 3.58 mill/uL (4.70-6.10); RED CELL DISTRI WIDTH 13.3 % (11.5-15.5)
[2017-09-18 06:17] LABS: ANION GAP 15 (6-22 (CALC)); BUN 15 mg/dL (8-23); BUN/CREATININE RATIO 23 (12-20 (CALC)); CARBON DIOXIDE 23 mmol/l (22-30); CHLORIDE 121 mmol/l (95-108); CREATININE 0.7 mg/dL (0.7-1.3); GFR > 60 ML/MIN (>=60 (CALC)); GFR FOR AFR.AMER. > 60 ML/MIN (>=60 (CALC)); POTASSIUM 3.5 mmol/l (3.5-5.1); SODIUM 156 mmol/l (137-146)
[2017-09-18 15:42] LABS: URINE BILIRUBIN - DIPSTICK NEGATIVE (NEGATIVE); URINE BLOOD DIPSTICK LARGE (NEGATIVE); URINE COLOR YELLOW; URINE GLUCOSE - DIPSTICK >=1000 mg/dL (NEGATIVE); URINE KETONE NEGATIVE (NEGATIVE); URINE LEUK ESTERASE TRACE (Negative); URINE NITRITE - DIPSTICK NEGATIVE (Negative); URINE PROTEIN - DIPSTICK 30 mg/dL (NEG-TRACE); URINE UROBILINOGEN - DIPSTICK 0.2 E.U./dL (0.2)
[2017-09-18 15:54] LABS: URINE CLARITY HAZY
[2017-09-19] VITALS (12 sets, daily range): BP systolic 162–194; BP diastolic 65–96
[2017-09-19 04:31] LABS: HEMATOCRIT 36.5 % (39.0-50.0); HEMOGLOBIN 11.6 g/dl (14.0-18.0); IMMATURE GRANULOCYTES 1.2 % (0.0-1.0); MEAN CELL VOLUME 100.8 fL CALC (80.0-100.0); MEAN CORPUSCULAR HGB CONC 31.8 g/L CALC (32.0-36.0); NEUT# 10.34 thou/uL (1.82-7.42); RED BLOOD COUNT 3.62 mill/uL (4.70-6.10); RED CELL DISTRI WIDTH 13.1 % (11.5-15.5)
[2017-09-19 04:46] LABS: ANION GAP 15 (6-22 (CALC)); BUN 12 mg/dL (8-23); BUN/CREATININE RATIO 20 (12-20 (CALC)); CARBON DIOXIDE 24 mmol/l (22-30); CHLORIDE 118 mmol/l (95-108); CREATININE 0.6 mg/dL (0.7-1.3); GFR > 60 ML/MIN (>=60 (CALC)); GFR FOR AFR.AMER. > 60 ML/MIN (>=60 (CALC)); POTASSIUM 3.4 mmol/l (3.5-5.1); SODIUM 153 mmol/l (137-146)
[2017-09-20] VITALS (11 sets, daily range): BP systolic 157–185; BP diastolic 57–94
[2017-09-20 04:41] LABS: HEMATOCRIT 32.7 % (39.0-50.0); HEMOGLOBIN 10.2 g/dl (14.0-18.0); IMMATURE GRANULOCYTES 0.8 % (0.0-1.0); MEAN CELL VOLUME 101.9 fL CALC (80.0-100.0); MEAN CORPUSCULAR HGB 31.8 pG CALC (26.0-32.0); MEAN CORPUSCULAR HGB CONC 31.2 g/L CALC (32.0-36.0); NEUT# 8.57 thou/uL (1.82-7.42); RED BLOOD COUNT 3.21 mill/uL (4.70-6.10); RED CELL DISTRI WIDTH 13.2 % (11.5-15.5)
[2017-09-20 04:54] LABS: ALBUMIN 2.2 g/dL (3.2-5.0); ALKALINE PHOSPHATASE 116 u/l (38-126); ANION GAP 13 (6-22 (CALC)); BILIRUBIN, TOTAL 1.2 mg/dL (0.0-1.4); BUN 13 mg/dL (8-23); BUN/CREATININE RATIO 20 (12-20 (CALC)); CARBON DIOXIDE 24 mmol/l (22-30); CHLORIDE 116 mmol/l (95-108); CREATININE 0.6 mg/dL (0.7-1.3); GFR > 60 ML/MIN (>=60 (CALC)); GFR FOR AFR.AMER. > 60 ML/MIN (>=60 (CALC)); POTASSIUM 3.3 mmol/l (3.5-5.1); SGOT/AST 27 u/l (19-48); SGPT/ALT 43 u/l (11-66); SODIUM 150 mmol/l (137-146); TOTAL PROTEIN 5.3 g/dL (6.3-8.2)
[2017-09-20] MEDS ORDERED: NYSTATIN100000 UN1 TOP (12:09)
[2017-09-20] MEDS ORDERED: LEVOFLOXACIN25 MG/ML PEG (15:07)
== END 2017-09-20 17:10 | DRG 178 ==
LOC: ED 11:29 → ED-I 13:26 → ED 14:13 → ICU 14:14
PROVIDERS: Emergency Medicine; ADMIT Internal Medicine Geriatric Medicine; ATTEND Internal Medicine Geriatric Medicine
PROC: 5A09357 Assistance with Respiratory Ventilation, Less than 24 Consecutive Hours, Continuous Positive Airway Pressure (ICD-10-PCS; principal; 2017-09-14)
DX: J69.0 Pneumonitis due to inhalation of food and vomit (principal); I69.954 Hemiplegia and hemiparesis following unspecified cerebrovascular disease affecting left non-dominant side; E11.65 Type 2 diabetes mellitus with hyperglycemia; I69.920 Aphasia following unspecified cerebrovascular disease; I69.918 Other symptoms and signs involving cognitive functions following unspecified cerebrovascular disease; I10 Essential (primary) hypertension; E78.5 Hyperlipidemia, unspecified; I25.10 Atherosclerotic heart disease of native coronary artery without angina pectoris; K21.9 Gastro-esophageal reflux disease without esophagitis; M19.90 Unspecified osteoarthritis, unspecified site; S30.820A Blister (nonthermal) of lower back and pelvis, initial encounter; F20.9 Schizophrenia, unspecified; X58.XXXA Exposure to other specified factors, initial encounter; Z93.1 Gastrostomy status; Z66 Do not resuscitate; Z95.5 Presence of coronary angioplasty implant and graft
CPT/HCPCS: S0164